=== PATIENT | female | born 1990 | race American Indian/Alaskan Native ===

== ENCOUNTER 2019-04-22 20:42 | Observation (INO) | payer MEDICAID ==
[2019-04-22] MEDS ORDERED: LACTATED RINGERS 500 ML IV ONE (21:23)
[2019-04-22 22:01] LABS: Bilirubin,Urine NEG (Negative); Blood,Urine LG (Negative); Color,Urine Red (Yellow); Urobilinogen,Urine < 2.0 mg/dL (<2.0)
[2019-04-22 22:03] LABS: Protein,Urine >500 mg/dL (Negative); RBC,Urine > 182.0 /HPF (0.0-6.0); WBC,Urine > 182.0 /HPF (0.0-6.0)
[2019-04-22] MEDS ORDERED: AMPICILLIN/NS 2 GM/100 ML 2 GM/100 ML BAG IV ONE (23:00)
[2019-04-22] MEDS ORDERED: LACTATED RINGERS 1,000 ML IV SCH (23:00)
[2019-04-23] MEDS ORDERED: MORPHINE IM STA (01:08)
--- NOTE | 2019-04-23 01:13 | Ultrasound Report ---
ULTRASOUND RENAL INDICATION: R/o Nephrolithiasis. COMPARISON: No relevant prior imaging study available. FINDINGS: RIGHT KIDNEY: Size: 12 cm. Echogenicity: Normal. Cortical thickness: Normal. Hydronephrosis: Moderate. Cyst or mass: None. Stones: None. LEFT KIDNEY: Size: 11.5 cm. Echogenicity: Normal. Cortical thickness: Normal. Hydronephrosis: None. Cyst or mass: None. Stones: None. Urinary Bladder: No significant abnormality. Free Fluid: None. Additional Findings: None. IMPRESSION 1. Moderate right hydronephrosis could well be due to the . No definite stones are seen.. Signer Name: Ant Watson MD Signed: 04/23/2019 1:09 AM Workstation Name: [id number]
--- NOTE | 2019-04-23 01:15 | Ultrasound Report ---
Limited OB ultrasound INDICATION: Rule out placental abruption FINDINGS: Single fetus is identified in vertex presentation. heart rate is 156 bpm. Placenta is anterior and grade 1. There is no abruption seen. Signer Name: Ant Watson MD Signed: 04/23/2019 1:11 AM Workstation Name: [id number]
[2019-04-23] MEDS ORDERED: COLACE PO PRN (03:33)
[2019-04-23] MEDS ORDERED: TYLENOL PO PRN (03:33)
[2019-04-23] MEDS: AMPICILLIN/NS 1 GM/50 ML 1 GM/50 ML BAG IV SCH ×3 (04:04→12:16)
[2019-04-23 05:20] LABS: Basophils # (Auto) 0.1 K/mm3 (0.0-0.1); Basophils % (Auto) 0.5 % (0.0-1.8); Eosinophils % (Auto) 0.2 % (0.0-4.3); Hemoglobin 10.6 gm/dl (10.1-14.3); Lymphocytes % (Auto) 7.4 % (13.4-35.0); Mean Corpuscular HGB Conc 33 % (30-34); Mean Corpuscular Volume 91 fl (79-97); Monocytes # (Auto) 1.6 K/mm3 (0.0-0.8); Monocytes % (Auto) 12.4 % (0.0-7.3); Platelet Count 162 K/mm3 (140-440); Red Blood Count 3.53 M/mm3 (3.65-5.03); Red Cell Distribution Width 14.5 % (13.2-15.2)
[2019-04-23] MEDS ORDERED: PRENATAL VITAMIN PO SCH (10:00)
[2019-04-23 12:09] VITALS: BP 99/71
== END 2019-04-23 15:50 | disposition home or self-care (01) ==
LOC: TRG 20:42 → LD 04-23 03:39 → TRG 04-23 03:39
PROVIDERS: ADMIT Obstetrics & Gynecology; ATTEND Obstetrics & Gynecology
DX: O26.893 Other specified pregnancy related conditions, third trimester (principal); M54.9 Dorsalgia, unspecified; R93.49 Abnormal radiologic findings on diagnostic imaging of other urinary organs; Z3A.33 33 weeks gestation of pregnancy
CPT/HCPCS: 36415; 76770; 76815; 81001; 85025; 87086; 87116; 96365; 96366; 96372; G0378; J0290; J2270; J7120

== ENCOUNTER 2019-06-03 18:27 | Inpatient (IN) | payer MEDICAID ==
[2019-06-03 19:30] LABS: Hematocrit 34.5 % (30.3-42.9); Hemoglobin 11.2 gm/dl (10.1-14.3); Mean Corpuscular HGB Conc 32 % (30-34); Mean Corpuscular Volume 91 fl (79-97); Platelet Count 138 K/mm3 (140-440); Red Cell Distribution Width 15.4 % (13.2-15.2)
[2019-06-03] MEDS ORDERED: AMPICILLIN/NS 2 GM/100 ML 2 GM/100 ML BAG IV ONE (19:35)
[2019-06-03] MEDS ORDERED: LACTATED RINGERS 1,000 ML IV SCH (20:00)
[2019-06-03] MEDS: SUBLIMAZE IV PRN ×2 (20:24→21:52)
[2019-06-03] MEDS ORDERED: PITOCin/NS 20 UNIT/1000ML DRIP 20,000 MILLIUNITS/1,000 ML BAG IV ONE ×2 (20:29→23:23)
[2019-06-03] MEDS ORDERED: MINERAL OIL ONE (21:44)
[2019-06-03] MEDS ORDERED: XYLOCAINE 2% INFILTRATI ONE (21:44)
[2019-06-03] MEDS ORDERED: MILK OF MAGNESIA PO PRN (22:35)
[2019-06-03] MEDS ORDERED: DERMOPLAST TP PRN (22:35)
[2019-06-03] MEDS ORDERED: TUCKS PAD TP PRN (22:35)
[2019-06-03] MEDS ORDERED: LANSINOH TP PRN ×2 (22:35)
[2019-06-03] MEDS ORDERED: NORCO 5/325 PO PRN (22:35)
--- NOTE | 2019-06-03 22:41 | History and Physical Report ---
History of Present Illness Date of examination: 06/03/19 Date of admission: 06/03/19 19:34 Chief complaint: Contractions History of present illness: 28 year old presents in active advanced labor at term. Patient received care at [facility] and records are available. LMP 09/20/18. EDC 06/04/19. 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 labs are as follows: O+, antibody screen negative, pap negative, rubella immune, hepatitis B surface antigen negative, HIV negative, RPR nonreactive, hemoglobin electrophoresis negative, gonorrhea negative/negative, chlamydia positive/negative, GBS positive, quad screen negative, 1 hour sugar test 128. Past History Past Medical History: other (eczema) Past Surgical History: no surgical history [facility] History: chlamydia (treated and cured). denies: gonorrhea, hepatitis B, hepatitis C, herpes, HIV, syphilis Family/Genetic History: none Social history: no significant social history, single, full code. denies: smoking - Obstetrical History Expected Date of Delivery: 06/04/19 Actual Gestation: 39 Week(s) 6 Day(s) : 3 Para: 2 Hx # Term Pregnancies: 1 Number of Pregnancies: 1 Spontaneous Abortions: 0 Induced : 0 Number of Living Children: 0 Medications and Allergies Allergies Allergy/AdvReac Type Severity Reaction Status Date / Time [place] And Derivatives Allergy Swelling Verified 02/25/14 13:07 Home Medications Medication Instructions Recorded Confirmed Last Taken Type Pnv 21/Iron Ps,Heme Ppep/Folic 1 each PO QDAY #30 tablet 06/22/14 06/03/19 06/03/19 Rx [Prefera Ob Tablet] 0800 Active Meds: Active Medications Fentanyl (Sublimaze) 100 mcg IV Q2H PRN PRN Reason: pain Last Admin: 06/03/19 21:52 Dose: 100 mcg Documented by: Lactated Ringer's (Lactated Ringers) 1,000 mls @ 125 mls/hr IV DIRECT KARLEE Last Admin: 06/03/19 20:24 Dose: 125 mls/hr Documented by: Review of Systems All systems: negative (labor) - Vital Signs Vital signs: Vital Signs Pulse Pulse Ox 106 H 100 06/03/19 18:38 06/03/19 18:38 Temp Pulse Resp BP Pulse Ox 93 H 18 116/68 93 06/03/19 22:40 06/03/19 21:52 06/03/19 22:26 06/03/19 22:40 - Physical Exam Abdomen: Positive: normal appearance, soft, normal bowel sounds. Negative: distention, tenderness, guarding, rigidity Genitourinary (Female): Positive: normal external genitalia. Negative: perineal/vulvar lesions Vulva: right: ulceration Vagina: Positive: normal moisture Cervix: Negative: lesion Uterus: Positive: enlarged. Negative: tender Anus/Rectum: Positive: normal perianal skin, rectal mass Extremities: Positive: normal - Obstetrical FHR: category 1 Uterine Contraction Monitor Mode: External Cervical Dilatation: 8 Cervical Effacement Percentage: 100 station: -1 Uterine Contraction Pattern: Regular Uterine Contraction Intensity: Moderate Results Result Diagrams: 06/03/19 Unknown Abnormal lab results 06/03/19 Range/Units Unknown RDW 15.4 H (13.2-15.2) % Plt Count 138 L (140-440) K/mm3 All other labs normal. Assessment and Plan A: at 39 6/7 weeks gestation. Active labor. GBS positive. HSV 2 positive, has been on Valtrex for suppression. P: Admit. GBS prophylaxis. Continuous EFM. Anticipate vaginal .
--- NOTE | 2019-06-03 22:53 | Procedure Note ---
OB Delivery Note - Delivery Date of Delivery: 06/03/19 Surgeon: ADRIANNE PHAM Estimated blood loss: 300cc - Vaginal Delivery presentation: vertex Delivery position: OA Intrapartum events: none Delivery augmentation: rupture of membranes Delivery monitor: external FHT, external uterine Route of delivery: Delivery placenta: spontaneous Delivery cord: 3 umbilical vessels Episiotomy: midline Delivery laceration: 2nd degree Delivery repair: vicryl Anesthesia: local Delivery comments: Spontaneous vaginal delivery at 21:41 of liveborn male weighing 8 lb. 8 oz. over 2nd degree midline episiotomy with apgars of 8/9. Patient had received Fentanyl soon before delivery so NICU team was present at . Baby delivered gently and easily; 3 vessel cord double clamped and cut and baby taken to radiant warmer to be evaluated by NICU team. Spontaneous cy and respirations. Baby bulb suctioned and dried. Spontaneous delivery of intact placenta and membranes by murphy mechanism. EBL 300 cc. Pitocin to IV fluids after delivery of placenta. Fundus firm and midline. 2nd degree midline episiotomy repaired with 2-0 vicryl in the usual sterile fashion. Vaginal sweep negative. Sponge count correct. Mother and baby stable.
[2019-06-03] MEDS ORDERED: SODIUM CHLORIDE FLUSH SYRINGE 10 ML IV NR (23:00)
[2019-06-04 10:50] LABS: Hematocrit 33.1 % (30.3-42.9)
--- NOTE | 2019-06-04 11:30 | Progress Note ---
Assessment and Plan A: day 1 S/P spontaneous vaginal delivery. P: Continue current management. Subjective - Subjective Date of service: 06/04/19 Principal diagnosis: day 1 S/P spontaneous vaginal delivery Interval history: day 1 S/P spontaneous vaginal delivery. Doing well. Patient reports small amount of lochia. She is voiding without difficulty, ambulating well, and tolerating a regular diet. Patient denies headache, chest pain, cough, shortness of breath, abdominal pain, leg pain, heavy bleeding, dizziness, or any other problems. Patient reports: appetite normal, voiding normally, pain well controlled, flatus, ambulating normally, no dizzy ambulation, no nauseated [place]: doing well Objective - Vital Signs Latest vital signs: Vital Signs Temp Pulse Resp BP BP Pulse Ox 06/04/19 08:00 97.7 F 80 18 102/55 06/04/19 06:40 97.7 F 75 18 98/60 06/04/19 00:07 97.5 F L 80 18 117/71 06/03/19 23:39 100 H 96 06/03/19 23:34 89 98 06/03/19 23:29 88 98 06/03/19 23:27 92 H 105/66 06/03/19 23:24 94 H 97 06/03/19 23:19 85 99 06/03/19 23:17 86 84 06/03/19 23:14 84 98 06/03/19 23:12 86 106/66 06/03/19 23:09 87 99 06/03/19 23:04 85 98 06/03/19 22:59 84 98 06/03/19 22:57 85 114/67 06/03/19 22:54 89 99 06/03/19 22:49 91 H 98 06/03/19 22:47 86 91 06/03/19 22:44 93 H 98 06/03/19 22:42 88 118/68 06/03/19 22:40 93 H 93 06/03/19 22:39 93 H 94 06/03/19 22:34 83 98 06/03/19 22:30 95 H 91 06/03/19 22:29 91 H 95 06/03/19 22:26 96 H 116/68 06/03/19 22:24 94 H 100 06/03/19 22:19 99 H 98 06/03/19 22:14 94 H 98 06/03/19 22:09 97 H 96 06/03/19 22:04 97 H 96 06/03/19 21:59 100 H 96 06/03/19 21:52 18 06/03/19 21:47 102 H 114/65 06/03/19 21:24 18 06/03/19 20:48 107 H 99 06/03/19 20:43 107 H 99 06/03/19 20:38 95 H 97 06/03/19 20:33 92 H 98 06/03/19 20:31 109 H 112/61 06/03/19 20:29 107 H 93 06/03/19 20:28 107 H 98 06/03/19 20:24 18 06/03/19 20:23 110 H 100 06/03/19 20:18 101 H 97 06/03/19 20:16 109 H 94 06/03/19 20:13 95 H 95 06/03/19 20:08 116 H 95 06/03/19 20:03 94 H 96 06/03/19 20:01 103 H 94 06/03/19 19:58 107 H 100 06/03/19 19:33 107 H 99 06/03/19 19:28 99 H 98 06/03/19 19:23 100 H 98 06/03/19 19:18 98 H 96 06/03/19 19:13 110 H 98 06/03/19 19:08 104 H 98 06/03/19 19:03 102 H 97 06/03/19 18:58 93 H 97 06/03/19 18:53 93 H 96 06/03/19 18:48 92 H 98 06/03/19 18:43 99 H 100 06/03/19 18:41 102 H 112/66 06/03/19 18:38 106 H 100 Intake and Output 06/03/19 06/04/19 06/04/19 23:59 07:59 15:59 Intake Total 720 540 Output Total 500 Balance 220 540 Intake: Oral 360 Intake, Free Water 720 180 Output: Urine 500 Void 500 Other: Total, Intake Amount 360 Total, Output Amount 200 # Voids Void 1 Weight 65.771 kg Estimated Blood Loss 300 - Exam Cardiovascular: Present: Regular rate, Normal S1, Normal S2, No murmurs Lungs: Present: Clear to auscultation Abdomen: Present: normal appearance, soft. Absent: distention, tenderness, guarding, rigidity Uterus: Present: normal, firm, fundal height below umbilicus. Absent: bogginess, tenderness Extremities: Present: normal. Absent: tenderness, edema - Labs Labs: Abnormal lab results 06/03/19 Range/Units Unknown RDW 15.4 H (13.2-15.2) % Plt Count 138 L (140-440) K/mm3
[2019-06-04] MEDS ORDERED: PROCTOFOAM PR PRN (11:31)
[2019-06-04] MEDS: COLACE PO SCH ×2 (11:50→22:12)
[2019-06-04] MEDS: IBUPROFEN PO SCH ×2 (11:51→18:15)
[2019-06-05] MEDS: IBUPROFEN PO SCH ×2 (04:21→12:14)
[2019-06-05] MEDS: COLACE PO SCH (12:14)
--- NOTE | 2019-06-05 14:36 | Progress Note ---
Assessment and Plan A: day 2 S/P spontaneous vaginal delivery. P: Discharge patient home today. Discussed with patient in detail discharge instructions and warning signs. Advised patient to continue taking vitamin and iron supplement at home. Advised patient to avoid intercourse, lifting or heavy housework. Advised patient to follow up at [facility] in 6 weeks for exam. Patient voiced understanding of all instructions. Subjective - Subjective Date of service: 06/05/19 Principal diagnosis: day 2 S/P spontaneous vaginal delivery Interval history: day 2 S/P spontaneous vaginal delivery. Doing well. Desires discharge today. Patient reports small amount of lochia. She is voiding without difficulty, ambulating well, and tolerating a regular diet. Patient denies headache, chest pain, cough, shortness of breath, abdominal pain, leg pain, heavy bleeding, dizziness, or any other problems. Patient reports: appetite normal, voiding normally, pain well controlled, flatus, ambulating normally, no dizzy ambulation, no nauseated : doing well Objective - Vital Signs Latest vital signs: Vital Signs Temp Pulse Resp BP BP Pulse Ox 06/05/19 14:27 96 H 100/58 06/05/19 08:43 97.6 F 91 H 18 97/58 97 06/05/19 00:39 98.6 F 104 H 18 103/70 98 06/04/19 16:21 98.2 F 95 H 18 96/56 98 Intake and Output 06/04/19 06/05/19 06/05/19 23:59 07:59 15:59 Intake Total 480 740 Balance 480 740 Intake: Oral 320 Intake, Free Water 160 740 Other: Total, Intake Amount 320 # Voids Void 3 2 # Bowel Movements 0 - Exam Cardiovascular: Present: Regular rate, Normal S1, Normal S2 Lungs: Present: Clear to auscultation Abdomen: Present: normal appearance, soft. Absent: distention, tenderness, guarding, rigidity Uterus: Present: normal, firm, fundal height below umbilicus. Absent: bogginess, tenderness Extremities: Present: normal. Absent: tenderness, edema
--- NOTE | 2019-06-05 14:40 | Discharge Summary ---
Providers - Providers Date of Admission: 06/03/19 19:34 Date of discharge: 06/05/19 Attending physician: BART MAO MD None Primary care physician: BART MAO MD Hospitalization Reason for admission: active labor Delivery: Episiotomy: midline Other procedures: none complications: none Discharge diagnosis: IUP at term delivered [place] baby: male Pertinent studies: Labs Hospital course: Normal course. Condition at discharge: Good Disposition: DC-01 TO HOME OR SELFCARE - Discharge Diagnoses (1) Term delivered Status: Acute Plan - Provider Discharge Summary Activity: routine, no sex for 6 weeks, no heavy lifting 4 weeks, no strenuous exercise Diet: routine Instructions: routine Additional instructions: Continue taking your vitamins and iron supplements at home. Call your doctor immediately for: * Fever > 100.5 * Heavy vaginal bleeding ( >1 pad per hour) * Severe persistent headache * Shortness of breath * Reddened, hot, painful area to leg or breast - Follow up plan Follow up: BART MAO MD [Primary Care Provider] - 6 Weeks
[2019-06-05 15:00] VITALS: BP 104/70
== END 2019-06-05 15:30 | disposition home or self-care (01) | DRG 774 ==
LOC: TRG 18:27 → OBSVTOIN 19:34 → LD 19:34 → OB 06-04 00:02
PROVIDERS: ADMIT Obstetrics & Gynecology; ATTEND Obstetrics & Gynecology
PROC: 10E0XZZ Delivery of Products of Conception, External Approach (ICD-10-PCS; principal; 2019-06-03)
PROC: 0KQM0ZZ Repair Perineum Muscle, Open Approach (ICD-10-PCS; 2019-06-03)
DX: O98.32 Other infections with a predominantly sexual mode of transmission complicating childbirth (principal); O99.824 Streptococcus B carrier state complicating childbirth; O70.1 Second degree perineal laceration during delivery; Z3A.39 39 weeks gestation of pregnancy; Z37.0 Single live birth
CPT/HCPCS: 36415; 85014; 85018; 85027; 86592; 86850; 86900; 86901; G0378; J0290; J2590; J3010; J7120

== ENCOUNTER 2020-01-18 10:27 | Emergency (ER) | payer MEDICAID ==
[2020-01-18 10:34] VITALS: BP 127/78
--- NOTE | 2020-01-18 11:08 | Emergency Department Report ---
ED N/V/D HPI - General Chief complaint: Nausea/Vomiting/Diarrhea Stated complaint: HEADACHES/VOMIT/DEHYDRATE Time Seen by Provider: 01/18/20 10:48 Source: patient Mode of arrival: Ambulatory Limitations: No Limitations - History of Present Illness Initial comments: This is a 29-year-old female nontoxic, well nourished in appearance, no acute signs of distress presents to the ED with c/o of nausea and vomiting 3 days. Stated has intermittent headaches but currently denies any headaches. Patient that she is currently about 8 weeks . Denies any pelvic pain or vaginal bleeding. Patient describes vomiting as food content. Patient denies any abdominal pain, chest pain, short of breath, fever, chills, headache, stiff neck, numbness or tingling. Patient denies any diarrhea or constipation. Denies any blood in stool. Patient denies any recent travels. Patient denies any drug allergies significant past medical history. MD complaint: nausea, vomiting -: days(s) Associated Abdominal Pain: No Radiation: none Pain Scale: 0 Improves with: none Worsens with: none Associated Symptoms: denies other symptoms, nausea/vomiting. denies: myalgias, chest pain, cough, diaphoresis, fever/chills, headaches, loss of appetite, malaise, rash, dysuria, shortness of breath, syncope, weakness - Related Data Previous Rx's Medication Instructions Recorded Last Taken Type Pnv 21/Iron Ps,Heme Ppep/Folic 1 each PO QDAY #30 tablet 06/22/14 06/03/19 Rx [Prefera Ob Tablet] 0800 Metoclopramide [Reglan] 10 mg PO Q12H PRN #12 tab 01/18/20 Unknown Rx Allergies Allergy/AdvReac Type Severity Reaction Status Date / Time [place] And Derivatives Allergy Swelling Verified 02/25/14 13:07 ED Review of Systems ROS: Stated complaint: HEADACHES/VOMIT/DEHYDRATE Other details as noted in HPI Constitutional: denies: chills, fever Eyes: denies: eye pain, eye discharge, vision change ENT: denies: ear pain, throat pain Respiratory: denies: cough, shortness of breath, wheezing Cardiovascular: denies: chest pain, palpitations Endocrine: no symptoms reported Gastrointestinal: nausea, vomiting. denies: abdominal pain, diarrhea, constipation, hematemesis, melena, hematochezia Genitourinary: denies: urgency, dysuria, discharge Musculoskeletal: denies: back pain, joint swelling, arthralgia Skin: denies: rash, lesions Neurological: denies: headache, weakness, paresthesias Psychiatric: denies: anxiety, depression Hematological/Lymphatic: denies: easy bleeding, easy bruising ED Past Medical Hx - Past Medical History Previous Medical History?: Yes Hx Hypertension: No Hx Congestive Heart Failure: No Hx Diabetes: No Hx Deep Vein Thrombosis: No Hx Renal Disease: No Hx Sickle Cell Disease: No Hx Seizures: No Hx Asthma: No Hx COPD: No Hx HIV: No Additional medical history: Herpes, Eczema - Social History Smoking Status: Never Smoker Substance Use Type: None - Medications Home Medications: Home Medications Medication Instructions Recorded Confirmed Last Taken Type Pnv 21/Iron Ps,Heme Ppep/Folic 1 each PO QDAY #30 tablet 06/22/14 06/03/1906/03 Rx [Prefera Ob Tablet] 0800 Metoclopramide [Reglan] 10 mg PO Q12H PRN #12 tab 01/18/20 Unknown Rx ED Physical Exam - General Limitations: No Limitations General appearance: alert, in no apparent distress - Head Head exam: Present: atraumatic, normocephalic - Eye Eye exam: Present: normal appearance - Neck Neck exam: Present: normal inspection, full ROM. Absent: tenderness, meningismus, lymphadenopathy - Respiratory Respiratory exam: Present: normal lung sounds bilaterally. Absent: respiratory distress, wheezes, rales, rhonchi, stridor, chest wall tenderness, accessory muscle use, decreased breath sounds, prolonged expiratory - Cardiovascular Cardiovascular Exam: Present: regular rate, normal rhythm, tachycardia, normal heart sounds. Absent: irregular rhythm, systolic murmur, diastolic murmur, rubs, gallop - GI/Abdominal GI/Abdominal exam: Present: soft, normal bowel sounds. Absent: distended, tenderness, guarding, rebound, rigid, diminished bowel sounds - Extremities Exam Extremities exam: Present: normal inspection, full ROM - Back Exam Back exam: Present: normal inspection, full ROM. Absent: tenderness, CVA tenderness (R), CVA tenderness (L), muscle spasm, paraspinal tenderness, vertebral tenderness, rash noted - Neurological Exam Neurological exam: Present: alert, oriented X3, normal gait - Expanded Neurological Exam Expanded Patient oriented to: Present: person, place, time Cranial nerves: EOM's Intact: Normal, Facial Sensation: Normal Cerebellar function: Finger to Nose: Normal Upper motor neuron: Pronator Drift: Normal, Sensory Extinction: Normal Motor strength exam: RUE: 5, LUE: 5, RLE: 5, LLE: 5 Best Eye Response ([place]): (4) open spontaneously Best Motor Response ([place]): (6) obeys commands Best Verbal Response ([place]): (5) oriented [place] Total: 15 - Psychiatric Psychiatric exam: Present: normal affect, normal mood - Skin Skin exam: Present: warm, dry, intact, normal color. Absent: rash ED Course Vital Signs 01/18/20 01/18/20 10:34 12:23 Temperature 98.6 F Pulse Rate 110 H 87 Respiratory 16 16 Rate Blood Pressure 127/78 [Right] O2 Sat by Pulse 99 100 Oximetry - Reevaluation(s) Reevaluation #1: 01/18/20 11:09 Patient is speaking in full sentences with no signs of distress noted. ED Medical Decision Making - Lab Data Result diagrams: 01/18/20 10:59 01/18/20 10:59 - Medical Decision Making This is a 29-year-old female that presents with hyperemesis gravidarum. Patient is stable and was examined by me. There is no abdominal tenderness. Negative signs of symptoms of appendicitis, cholecystitis or acute abdomen. Labs obtained. UA obtained. Vital signs are stable prior to discharge. Patient received Reglan and 1L Normal saline in the ED which patient stated symptoms has resovled and subsided. A by mouth challenge has been obtained and patient tolerated well with no nausea vomiting. Patient was also instructed to Follow- up with a OBGYN doctor in 3-5 days or if symptoms worsen and continue return to emergency room as soon as possible. At time of discharge, the patient does not seem toxic or ill in appearance. No acute signs of distress noted. Patient agrees to discharge treatment plan of care. No further questions noted by the patient. Critical care attestation.: If time is entered above; I have spent that time in minutes in the direct care of this critically ill patient, excluding procedure time. ED Disposition Clinical Impression: Hyperemesis gravidarum Disposition: DC-01 TO HOME OR SELFCARE Is pt being admited?: No Does the pt Need Aspirin: No Condition: Stable Instructions: Hyperemesis Gravidarum (ED) Additional Instructions: Follow-up with a OBGYN doctor in 3-5 days or if symptoms worsen and continue return to emergency room as soon as possible. Prescriptions: Metoclopramide [Reglan] 10 mg PO Q12H PRN #12 tab PRN Reason: Nausea Referrals: PRIMARY CARE, [Primary Care Provider] - 3-5 Days ERNA CHIANG MD [Staff Physician] - 3-5 Days [facility] [Provider Group] - 3-5 Days Forms: Work/School Release Form(ED)
[2020-01-18] MEDS: METOCLOPRAMIDE 10 MG/2 ML INJ IV ONE (11:24)
[2020-01-18] MEDS: SODIUM CHLORIDE 0.9% 1000 ML 1,000 ML IV ONE (11:24)
[2020-01-18 12:10] LABS: Basophils % (Auto) 0.5 % (0.0-1.8); Eosinophils # (Auto) 0.1 K/mm3 (0.0-0.4); Eosinophils % (Auto) 1.9 % (0.0-4.3); Hematocrit 39.5 % (30.3-42.9); Hemoglobin 12.9 gm/dl (10.1-14.3); Lymphocytes # (Auto) 1.4 K/mm3 (1.2-5.4); Lymphocytes % (Auto) 22.2 % (13.4-35.0); Mean Corpuscular HGB Conc 33 % (30-34); Mean Corpuscular Volume 90 fl (79-97); Monocytes # (Auto) 0.5 K/mm3 (0.0-0.8); Monocytes % (Auto) 8.7 % (0.0-7.3); Platelet Count 189 K/mm3 (140-440); Red Blood Count 4.38 M/mm3 (3.65-5.03); Red Cell Distribution Width 15.8 % (13.2-15.2)
[2020-01-18 14:15] LABS: Alanine Aminotransferase 8 units/L (7-56); BUN/Creatinine Ratio 14; Blood Urea Nitrogen 7 mg/dL (7-17); Calcium 9.5 mg/dL (8.4-10.2); Hemolysis Index 65
== END 2020-01-18 14:56 | disposition home or self-care (01) ==
LOC: ED 10:27
DX: O21.0 Mild hyperemesis gravidarum (principal); Z79.899 Other long term (current) drug therapy; Z91.018 Allergy to other foods; Z3A.01 Less than 8 weeks gestation of pregnancy
CPT/HCPCS: 36415; 80053; 84702; 85025; 96361; 96374; 99283; J2765; J7030

== ENCOUNTER 2020-07-20 14:23 | Inpatient (IN) | payer MEDICAID ==
[2020-07-20] MEDS ORDERED: ePHEDrine SULFATE 50 MG/1 ML INJ IV PRN (15:06)
[2020-07-20] MEDS ORDERED: TERBUTALINE 1 MG/1 ML INJ SUB-Q PRN (15:06)
[2020-07-20] MEDS ORDERED: BUTORPHANOL 2 MG/1 ML INJ IV PRN (15:06)
[2020-07-20] MEDS ORDERED: fentaNYL 100 MCG/2 ML INJ IV PRN (15:06)
[2020-07-20] MEDS ORDERED: MINERAL OIL 30 ML ORAL LIQD PO PRN (15:06)
[2020-07-20] MEDS ORDERED: OXYTOCIN DRIP 30 UNITS/500 ML BAG IV SCH (16:00)
[2020-07-20] MEDS ORDERED: LIDOCAINE (2%) 20 MG/1 ML VIAL 20 ML MDV INFILTRATI ONE (16:00)
[2020-07-20] MEDS ORDERED: AMPICILLIN/NS 2 GM/100 ML 2 GM/100 ML BAG IV ONE (16:00)
[2020-07-20] MEDS ORDERED: LACTATED RINGERS 1,000 ML IV SCH (16:00)
[2020-07-20 18:06] LABS: Hematocrit 33.8 % (30.3-42.9); Mean Corpuscular HGB Conc 33 % (30-34); Mean Corpuscular Volume 86 fl (79-97); Platelet Count 142 K/mm3 (140-440); Red Blood Count 3.92 M/mm3 (3.65-5.03); Red Cell Distribution Width 16.3 % (13.2-15.2)
[2020-07-20] MEDS ORDERED: AMPICILLIN/NS 1 GM/50 ML 1 GM/50 ML BAG IV SCH (20:00)
[2020-07-20] MEDS ORDERED: miSOPROStol 200 MCG TAB ONE (20:03)
[2020-07-20] MEDS ORDERED: miSOPROStol 200 MCG TAB PR ONE (20:05)
--- NOTE | 2020-07-20 20:07 | History and Physical Report ---
History of Present Illness Date of examination: 07/20/20 Date of admission: 07/20/20 15:23 Chief complaint: Leakage of fluid History of present illness: 29-year-old -1-0-3 at 39+1 weeks who presents in active labor with gross rupture of membranes. records are not available for review at this time. Past History Past Medical History: no pertinent history Past Surgical History: no surgical history Social history: - Obstetrical History Expected Date of Delivery: 07/26/20 Actual Gestation: 39 Week(s) 1 Day(s) : 4 Para: 3 Hx # Term Pregnancies: 2 Number of Pregnancies: 1 Spontaneous Abortions: 0 Induced : 0 Number of Living Children: 3 Medications and Allergies Allergies Allergy/AdvReac Type Severity Reaction Status Date / Time [place] And Derivatives Allergy Swelling Verified 02/25/14 13:07 Home Medications Medication Instructions Recorded Confirmed Last Taken Type Pnv 21/Iron Ps,Heme Ppep/Folic 1 each PO QDAY #30 tablet 06/22/14 06/03/19 06/03/19 Rx [Prefera Ob Tablet] 0800 Metoclopramide [Reglan] 10 mg PO Q12H PRN #12 tab 01/18/20 Unknown Rx Active Meds: Active Medications Butorphanol Tartrate (Stadol) 2 mg IV Q2H PRN PRN Reason: Pain , Severe (7-10) Ephedrine Sulfate (Ephedrine Sulfate) 10 mg IV Q2M PRN PRN Reason: Hypotension Fentanyl (Sublimaze) 100 mcg IV Q2H PRN PRN Reason: Pain,Severe (7-10) LABOR PAIN Last Admin: 07/20/20 18:10 Dose: 100 mcg Documented by: Oxytocin/Sodium Chloride (Pitocin/Ns 30 Unit/500ml) 30 units in 500 mls @ 4 mls/hr IV TITR KARLEE; Protocol Last Titration: 07/20/20 17:30 Dose: 12 ml/hr, 12 mls/hr Documented by: Lactated Ringer's (Lactated Ringers) 1,000 mls @ 125 mls/hr IV DIRECT KARLEE Ampicillin Sodium (Ampicillin/Ns 1 Gm/50 Ml) 1 gm in 50 mls @ 100 mls/hr IV Q4H KARLEE; Protocol Mineral Oil (Mineral Oil) 30 ml PO QHS PRN PRN Reason: Constipation Terbutaline Sulfate (Brethine) 0.25 mg SUB-Q ONCE PRN PRN Reason: Hyperstimulation/Hypertonicity Review of Systems All systems: negative Genitourinary: leakage of fluid, contractions - Vital Signs Vital signs: Vital Signs Pulse Pulse Ox 86 98 07/20/20 14:56 07/20/20 14:56 Temp Pulse Resp BP Pulse Ox 98.0 F 34 L 16 114/70 0 L 07/20/20 14:57 07/20/20 19:51 07/20/20 14:57 07/20/20 19:39 07/20/20 19:51 - Physical Exam Breasts: Positive: deferred Cardiovascular: Regular rate Lungs: Positive: Clear to auscultation Abdomen: Positive: normal appearance Results Result Diagrams: 07/20/20 17:15 Abnormal lab results 07/20/20 Range/Units 17:15 RDW 16.3 H (13.2-15.2) % All other labs normal. Assessment and Plan - Patient Problems (1) Active labor at term Current Visit: Yes Status: Acute Plan to address problem: Admit to labor and delivery
--- NOTE | 2020-07-20 20:08 | Procedure Note ---
OB Delivery Note - Delivery Date of Delivery: 07/20/20 Surgeon: MYRA MIMS Estimated blood loss: 100cc - Vaginal Delivery presentation: vertex Delivery position: OA Delivery augmentation: pitocin Delivery monitor: external FHT, external uterine Route of delivery: Delivery placenta: spontaneous Delivery cord: 3 umbilical vessels Episiotomy: none Delivery laceration: none Anesthesia: none - A at 1 minute: 8 at 5 minutes: 9 Infant Gender: Female (Weight 8 pounds 2 ounces)
[2020-07-20] MEDS ORDERED: LANOLIN/ZINC/DIMETHICONE (LANSINOH) 7 GM TP PRN (21:58)
[2020-07-20] MEDS ORDERED: ONDANSETRON 4 MG/2 ML INJ IV PRN (21:58)
[2020-07-20] MEDS ORDERED: WITCH HAZEL/ GLYCERIN PAD TP PRN (21:58)
[2020-07-20] MEDS ORDERED: MAGNESIUM HYDROXIDE (MOM) ORAL LIQD UDC PO PRN (21:58)
[2020-07-20] MEDS ORDERED: diphenhydrAMINE 25 MG CAP PO PRN (21:58)
[2020-07-20] MEDS ORDERED: PROMETHAZINE 25 MG RECT SUPP PR PRN (21:58)
[2020-07-20] MEDS ORDERED: PROMETHAZINE 25 MG TAB PO PRN (21:58)
[2020-07-20] MEDS: HYDROcodone/ACETAMINOPHEN 5-325 MG TAB PO PRN (23:22)
[2020-07-21] MEDS: IBUPROFEN 600 MG TAB PO SCH ×3 (04:42→16:17)
[2020-07-21] MEDS: HYDROcodone/ACETAMINOPHEN 5-325 MG TAB PO PRN (06:39)
[2020-07-21 08:31] LABS: Hemoglobin 9.1 gm/dl (10.1-14.3)
--- NOTE | 2020-07-21 11:50 | Progress Note ---
Assessment and Plan - Patient Problems (1) Active labor at term Current Visit: Yes Status: Acute Plan to address problem: Patient doing well Discharge home Subjective - Subjective Date of service: 07/21/20 Interval history: Patient experiencing minor uterine cramping. She reports that her lochia is decreasing. She is tolerating regular diet. Patient reports: appetite normal, voiding normally, pain well controlled : doing well Objective - Vital Signs Latest vital signs: Vital Signs Temp Pulse Resp BP BP Pulse Ox 07/21/20 08:36 98.2 F 87 18 103/57 96 07/21/20 04:24 98.0 F 91 H 20 102/61 96 07/21/20 00:20 98.3 F 80 20 116/73 97 07/20/20 22:00 97.9 F 82 21 104/66 99 07/20/20 21:25 93 H 110/62 07/20/20 21:10 85 105/55 07/20/20 20:55 113/63 07/20/20 20:40 88 115/60 07/20/20 20:25 90 120/62 07/20/20 20:11 89 128/60 07/20/20 19:51 34 L 0 L 07/20/20 19:50 86 07/20/20 19:45 113 H 98 07/20/20 19:40 101 H 96 07/20/20 19:39 98 H 114/70 94 07/20/20 19:35 99 H 98 07/20/20 19:30 112 H 96 07/20/20 19:11 100 H 97 07/20/20 19:06 94 H 99 07/20/20 19:01 91 H 99 07/20/20 18:56 106 H 98 07/20/20 18:51 101 H 100 07/20/20 18:46 95 H 99 07/20/20 18:41 88 99 07/20/20 18:36 82 99 07/20/20 18:31 89 99 07/20/20 18:26 105 H 97 07/20/20 18:21 93 H 97 07/20/20 18:16 97 H 97 07/20/20 18:11 86 98 07/20/20 18:06 105 H 98 07/20/20 18:01 102 H 98 07/20/20 17:56 93 H 100 07/20/20 17:51 91 H 99 07/20/20 17:46 89 99 07/20/20 17:41 92 H 97 07/20/20 17:36 85 110/63 99 07/20/20 17:31 94 H 98 07/20/20 17:26 95 H 98 07/20/20 17:21 88 98 07/20/20 17:16 98 H 98 07/20/20 17:11 84 99 07/20/20 17:06 92 H 98 07/20/20 17:01 87 98 07/20/20 16:56 86 98 07/20/20 16:51 91 H 99 07/20/20 16:46 85 98 07/20/20 16:41 91 H 99 07/20/20 16:36 94 H 99 07/20/20 16:31 94 H 99 07/20/20 16:26 87 98 07/20/20 16:21 90 98 07/20/20 16:16 92 H 100 07/20/20 16:11 88 99 07/20/20 16:06 89 98 07/20/20 16:01 87 97 07/20/20 15:56 88 98 07/20/20 15:51 87 98 07/20/20 15:46 87 97 07/20/20 15:41 87 97 07/20/20 15:36 83 99 07/20/20 15:31 89 98 07/20/20 15:26 86 98 07/20/20 15:21 85 98 07/20/20 15:16 90 99 07/20/20 15:11 88 98 07/20/20 15:06 84 98 07/20/20 15:01 88 98 07/20/20 14:57 98.0 F 84 16 113/71 113/71 98 07/20/20 14:56 86 98 Intake and Output 07/20/20 07/21/20 07/21/20 22:59 06:59 14:59 Intake Total 8.533 240 240 Output Total 400 Balance 8.533 -160 240 Intake: IV 8.533 PITOCin/NS 30 UNIT/500ML 8.533 30 units In 500 ml @ 4 mls/hr IV TITR KARLEE Rx#: [id number] Oral 240 240 Output: Urine 400 Void 400 Other: Total, Intake Amount 240 240 Total, Output Amount 400 # Voids Void 1 Estimated Blood Loss 100 - Exam Uterus: Present: normal, firm - Labs Labs: Abnormal lab results 07/20/20 07/21/20 Range/Units 17:15 08:09 Hgb 9.1 L (10.1-14.3) gm/dl Hct 28.0 L (30.3-42.9) % RDW 16.3 H (13.2-15.2) %
--- NOTE | 2020-07-21 11:51 | Discharge Summary ---
Providers - Providers Date of Admission: 07/20/20 15:23 Date of discharge: 07/21/20 Attending physician: MYRA MIMS Primary care physician: MYRA MIMS Hospitalization Reason for admission: active labor Delivery: Laceration: none Discharge diagnosis: IUP at term delivered [place] baby: female Hospital course: Patient admitted in active labor. She had a normal spontaneous vaginal delivery. course was uneventful. Condition at discharge: Good Disposition: DC-01 TO HOME OR SELFCARE - Discharge Diagnoses (1) Active labor at term Status: Acute Plan - Discharge Medications Prescriptions: Ibuprofen [Motrin] 800 mg PO Q8HR PRN #30 tablet PRN Reason: Pain , Severe (7-10) HYDROcodone/APAP 5-325 [[place] 5/325] 1 each PO Q6HR PRN #15 tablet PRN Reason: Pain - Provider Discharge Summary Activity: no sex for 6 weeks, no heavy lifting 4 weeks, no strenuous exercise Diet: routine Instructions: routine Additional instructions: [] Smoking cessation referral if applicable(refer to patient education folder for contact #) [] Refer to [facility] Booklet Call your doctor immediately for: * Fever > 100.5 * Heavy vaginal bleeding ( >1 pad per hour) * Severe persistent headache * Shortness of breath * Reddened, hot, painful area to leg or breast * Schedule visit in 4 weeks - Follow up plan
[2020-07-21 16:30] VITALS: BP 95/60
== END 2020-07-21 21:11 | disposition home or self-care (01) | DRG 775 ==
LOC: TRG 14:23 → LD 14:25 → TRG 15:22 → LD 15:23 → OB 21:57
PROVIDERS: ADMIT Obstetrics & Gynecology; ATTEND Obstetrics & Gynecology
PROC: 10E0XZZ Delivery of Products of Conception, External Approach (ICD-10-PCS; principal; 2020-07-20)
DX: O80 Encounter for full-term uncomplicated delivery (principal); Z3A.39 39 weeks gestation of pregnancy; Z37.0 Single live birth
CPT/HCPCS: 36415; 85014; 85018; 85027; 86592; 86850; 86900; 86901; G0378; J0290; J2590; J3010; U0003

== ENCOUNTER 2021-02-23 21:21 | Emergency (ER) | payer MEDICAID ==
[2021-02-23 23:40] LABS: Basophils % (Auto) 0.4 % (0.0-1.8); Eosinophils # (Auto) 0.1 K/mm3 (0.0-0.4); Hematocrit 38.9 % (30.3-42.9); Hemoglobin 13.1 gm/dl (10.1-14.3); Lymphocytes # (Auto) 1.6 K/mm3 (1.2-5.4); Lymphocytes % (Auto) 21.7 % (13.4-35.0); Mean Corpuscular HGB Conc 34 % (30-34); Mean Corpuscular Volume 90 fl (79-97); Monocytes # (Auto) 0.6 K/mm3 (0.0-0.8); Monocytes % (Auto) 8.1 % (0.0-7.3); Platelet Count 166 K/mm3 (140-440); Red Cell Distribution Width 14.5 % (13.2-15.2)
[2021-02-24 00:04] LABS: Alanine Aminotransferase 8 units/L (7-56); Albumin 4.1 g/dL (3.9-5); Blood Urea Nitrogen 7 mg/dL (7-17); Calcium 9.1 mg/dL (8.4-10.2); Hemolysis Index 0
[2021-02-24 00:10] LABS: BUN/Creatinine Ratio 18
[2021-02-24 00:47] LABS: Bacteria,Urine 1+ /HPF (Negative); Bilirubin,Urine NEG (Negative); Blood,Urine SM (Negative); Color,Urine Yellow (Yellow); Mucus,Urine 3+ /HPF
[2021-02-24 03:40] VITALS: BP 122/60
== END 2021-02-24 03:42 | disposition home or self-care (01) ==
LOC: ED 21:21
DX: O26.851 Spotting complicating pregnancy, first trimester (principal); O26.892 Other specified pregnancy related conditions, second trimester; R10.9 Unspecified abdominal pain; Z3A.16 16 weeks gestation of pregnancy; Z98.890 Other specified postprocedural states; Z91.018 Allergy to other foods; Z79.899 Other long term (current) drug therapy
CPT/HCPCS: 36415; 76805; 80053; 81001; 84702; 85025; 86900; 86901; 99284

== ENCOUNTER 2022-03-18 22:57 | Emergency (ER) | payer MEDICAID ==
[2022-03-19 00:18] VITALS: BP 108/68
[2022-03-19 00:56] LABS: Basophils % (Auto) 0.6 % (0.0-1.8); Eosinophils # (Auto) 0.1 K/mm3 (0.0-0.4); Eosinophils % (Auto) 1.4 % (0.0-4.3); Hematocrit 35.4 % (30.3-42.9); Hemoglobin 11.6 gm/dl (10.1-14.3); Lymphocytes # (Auto) 1.9 K/mm3 (1.2-5.4); Lymphocytes % (Auto) 24.3 % (13.4-35.0); Mean Corpuscular HGB Conc 33 % (30-34); Mean Corpuscular Volume 90 fl (79-97); Monocytes # (Auto) 0.7 K/mm3 (0.0-0.8); Monocytes % (Auto) 8.6 % (0.0-7.3); Platelet Count 170 K/mm3 (140-440); Red Blood Count 3.94 M/mm3 (3.65-5.03); Red Cell Distribution Width 14.6 % (13.2-15.2)
[2022-03-19 01:14] LABS: Blood Urea Nitrogen 10 mg/dL (7-17); Calcium 9.9 mg/dL (8.4-10.2); Hemolysis Index 0
[2022-03-19 01:21] LABS: BUN/Creatinine Ratio 20
[2022-03-19 03:52] LABS: Bilirubin,Urine NEG (Negative); Blood,Urine NEG (Negative); Color,Urine Yellow (Yellow); Protein,Urine <15 mg/dL mg/dL (Negative)
[2022-03-19 03:54] LABS: Bacteria,Urine 1+ /HPF (Negative); Mucus,Urine FEW /HPF
== END 2022-03-19 03:20 | disposition left against medical advice (07) ==
LOC: TRG 22:57 → ED 22:57 → EDSTATUS 23:27 → ED 03-19 03:20
DX: R10.9 Unspecified abdominal pain (principal); Z53.21 Procedure and treatment not carried out due to patient leaving prior to being seen by health care provider
CPT/HCPCS: 36415; 80048; 81001; 84703; 85025; 87086